=== PATIENT | female | born 1995 | race Caucasian/White ===

== ENCOUNTER 2021-10-23 16:21 | Outpatient (CLI) | payer BC, MEDICAID, SELFPAY ==
--- NOTE | 2021-10-23 16:39 | XR_ITS ---
WS: [id number] Exam: XR lumbar spine 2-3V* [id number] Date/Time of Exam: 10/23/2021 4:41 PM Reason For Exam: S39.012A - Strain of muscle, fascia and tendon of lower b... No acute fracture or dislocation. Disc spaces are preserved. Posterior elements are intact. Mild levo scoliosis. There are bone hemangiomas involving all 5 lumbar vertebra as well as the lower 3 thoracic vertebra. SI joints are open. XR/XR lumbar spine 2-3V* [id number] IMPRESSION: 1. No acute fracture or dislocation. 2. Mild levoscoliosis. 3. 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
== END 2021-10-23 16:22 | disposition home or self-care (01) ==
LOC: RAD 16:24
PROVIDERS: PCP Registered Nurse; Visit Provider Registered Nurse
DX: S39.012A Strain of muscle, fascia and tendon of lower back, initial encounter (principal); X58.XXXA Exposure to other specified factors, initial encounter; M41.86 Other forms of scoliosis, lumbar region
CPT/HCPCS: 72100

== ENCOUNTER 2021-10-27 06:00 | Outpatient (RCR) | payer BC, SELFPAY | END 2021-11-24 23:59 | disposition home or self-care (01) | LOC: SPT 06:00 | PROVIDERS: PCP Registered Nurse; Visit Provider Registered Nurse | DX: S39.012A Strain of muscle, fascia and tendon of lower back, initial encounter (principal); X58.XXXA Exposure to other specified factors, initial encounter; M41.86 Other forms of scoliosis, lumbar region | CPT/HCPCS: 97110; 97161 ==

== ENCOUNTER → 2023-04-11 08:56 | Outpatient (BNVA) | payer BC, SELFPAY | PROVIDERS: PCP Registered Nurse; Visit Provider Registered Nurse | DX: F41.9 Anxiety disorder, unspecified (principal); Z83.49 Family history of other endocrine, nutritional and metabolic diseases; F32.81 Premenstrual dysphoric disorder | CPT/HCPCS: 80053; 82607; 84443; 85025 ==

== ENCOUNTER → 2023-04-30 08:49 | Outpatient (BNVA) | payer BC, MEDICAID, SELFPAY | PROVIDERS: PCP Registered Nurse; Visit Provider Registered Nurse | DX: J02.9 Acute pharyngitis, unspecified (principal) | CPT/HCPCS: 87880 ==